=== PATIENT | female | born 1960 | race Hispanic/Latino ===

== ENCOUNTER 2018-10-24 07:05 | Outpatient (CLI) | payer OTHER | END 2018-10-24 07:06 | disposition home or self-care (01) | LOC: C.LAB 07:05 ==

== ENCOUNTER 2018-11-22 13:45 | Outpatient (CLI) | payer OTHER | END 2018-11-22 13:46 | disposition home or self-care (01) | LOC: C.LAB 13:45 | DX: Z12.4 Encounter for screening for malignant neoplasm of cervix (principal); Z11.59 Encounter for screening for other viral diseases ==